=== PATIENT | male | born 1990 | race Two or more races ===

== ENCOUNTER 2020-10-16 16:22 | Emergency (ER) | payer BC ==
[~2020-10-16] VITALS: Ht 182.9 cm; Wt 77.4 kg
[2020-10-16 17:28] LABS: BASOPHILS % 0.9 % (0.0-2.0); EOSINOPHILS % 4.6 % (0.0-5.0); HEMATOCRIT. 44.2 % (42.0-52.0); HEMOGLOBIN. 15.6 g/dL (14.0-18.0); LYMPHOCYTES % 32.6 % (20.0-50.0); MEAN CORPUSCULAR HEMOGLOBIN 31.8 pg (28.0-32.0); MEAN CORPUSCULAR VOLUME 90.1 fL (80.0-94.0); MEAN PLATELET VOLUME 9.6 fl (7.4-10.4); MONOCYTES % 10.8 % (2.0-8.0); NEUTROPHILS % 51.1 % (40.0-76.0); PLATELET 217 x1000/uL (130-400); RED BLOOD CELL COUNT 4.91 mill/uL (4.7-6.1); RED CELL DISTRIBUTION WIDTH 14.1 % (11.6-14.6)
[2020-10-16] MEDS ORDERED: DIPHENHYDRAMINE 50MG/ML VIAL IV ONE (17:30)
[2020-10-16 17:33] LABS: CHLORIDE 108 mEq/L (98-107)
[2020-10-16] MEDS ORDERED: DIPH25CA83 PO (18:47)
[2020-10-16 18:57] VITALS: BP 108/66
== END 2020-10-16 18:58 | disposition home or self-care (01) ==
LOC: ER 16:22
DX: G24.8 Other dystonia (principal)
CPT/HCPCS: 36415; 80053; 85025; 93005; 96374; 99284; J1200